=== PATIENT | female | born 1975 | race Asian ===

== ENCOUNTER 2018-06-08 13:21 | Day surgery (SDC) | payer OTHER, SELFPAY ==
[2018-06-08 14:42] LABS: #Eosinphils 0.1 thou/uL (0.0-0.7); #Lymphocytes 0.8 thou/uL (1.20-3.40); #Monocytes 0.6 thou/uL (0.11-0.59); #Neutrophils 6.4 thou/uL (1.40-6.50); %Eosinophils 0.7 % (0.0-10.0); %Lymphocytes 9.6 % (21.0-51.0); %Monocytes 7.2 % (0.0-10.0); %Neutrophils 82.5 % (42.0-75.0); Hemoglobin 13.4 g/dL (12.0-16.0); Mean Corpuscular HGB CONC 34.5 g/dL (32.0-36.0); Mean Corpuscular Volume 98.4 fL (78.0-98.0); Mean Platelet Volume 7.5 fL (7.4-10.4); Platelet Count 161 thou/uL (130-400); RBC Distribution Width 12.6 % (11.5-14.5); Red Blood Cell (RBC) Count 3.93 mill/uL (4.20-5.40); White Blood Cell (WBC) Count 7.8 thou/uL (4.8-10.8)
[2018-06-08] MEDS ORDERED: Acetaminophen 500 MG TAB PO PRN (15:26)
[2018-06-08] MEDS ORDERED: Ondansetron HCl/PF 4 MG/2 ML Vial IVP PRN (15:26)
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
== END 2018-06-08 19:20 | disposition home or self-care (01) ==
LOC: ERS 13:21 → L&D/OP 14:25 → L&D 14:25 → SDC 14:25 → L&D/OP 19:20
PROVIDERS: ATTEND Obstetrics & Gynecology
DX: O9A.213 Injury, poisoning and certain other consequences of external causes complicating pregnancy, third trimester (principal); Z3A.30 30 weeks gestation of pregnancy
CPT/HCPCS: 85025; 85460; 86900; 86901; 99281

== ENCOUNTER 2018-07-12 13:34 | Outpatient (CLI) | payer OTHER | END 2018-07-12 13:35 | disposition home or self-care (01) | LOC: LAB 13:34 | PROVIDERS: ATTEND Family Medicine | DX: Z34.00 Encounter for supervision of normal first pregnancy, unspecified trimester (principal) | CPT/HCPCS: 87081 ==

== ENCOUNTER 2018-07-25 03:39 | Inpatient (IN) | payer MEDICAID, OTHER, SELFPAY ==
[2018-07-25] MEDS ORDERED: Promethazine HCl 25 MG/ML VIAL IM PRN ×2 (04:05→19:39)
[2018-07-25] MEDS ORDERED: Ondansetron HCl/PF 4 MG/2 ML Vial IVP PRN ×2 (04:05→19:39)
[2018-07-25] MEDS ORDERED: Ibuprofen 800 MG TAB PO PRN (04:05)
[2018-07-25] MEDS ORDERED: NS / Oxytocin 40 units/1000ml 1,000 ML IV PRN (04:05)
[2018-07-25] MEDS ORDERED: Lidocaine 1% (PF) 30 ML VIAL SC PRN (04:05)
--- NOTE | 2018-07-25 04:11 | PDOC.FPROB ---
FMR OB H&P: HPI - History of Present Illness Chief Complaint: Leaking of fluid Indentification: 43 year old History of Present Illness: 43 year old at 37.2 wks with ENEDINA of 08/13/2018 that presents with SROM at 2: 30 AM on 07/25/2018. Fluid was pink-tinged. Patient endorses few irregular contractions. She endorses good movement. 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: None - Surgical History Sx History: Cyst removal from thyroid - Social History Social History: Denies alcohol, tobacco, or drug use - Family History Family History: Noncontributory [facility]MR OB H&P: Medications - Current Home Medications: Medication Instructions Recorded Confirmed Type Vits96/Iron Fum/Folic 1 cap PO DAILY 06/08/18 07/25/18 History [ Tablet] Allergies/Adverse Reactions: Allergies Allergy/AdvReac Type Severity Reaction Status Date / Time alcohol Allergy Verified 06/08/18 15:32 beer Allergy Uncoded 06/08/18 15:33 FMR OB H&P: ROS - Review of Systems General: denies: fever/chills, fatigue Eyes: denies: vision changes, double vision ENT: denies: nasal congestion, rhinorrhea, sore throat Cardiovascular: denies: chest pain, palpitation, edema Respiratory: denies: cough, congestion, shortness of breath Gastrointestinal: denies: abdominal pain, indigestion, bloating, cramping, nausea, vomiting, diarrhea Genitourinary (Female): reports: polyuria, vaginal pain, contractions. denies: incontinence, dysuria, vaginal discharge, vaginal bleeding Musculoskeletal: denies: pain Hematologic/Lymphatic: denies: prolonged or excessive bleeding Psychological: denies: depression, anxiety FMR OB H&P: Vital Signs - Maternal Vital signs: BP 135/85 Pulse 62 - Heart Tones Baseline: 140 Variability: moderate Acceleration: present Deceleration: absent Category: category 1 [place] contractions every: q4-7 minutes [facility]MR OB H&P: Physical Exam - Physical Exam General: NAD, awake, alert and oriented HEENT: MMM, grossly normal vision, grossly normal hearing Neck: supple Heart: pulses present, no edema General: no respiratory distress Abdomen: soft, gravid, non-tender Musculoskeletal: pulses present Neurological: no tremor, no focal deficit Skin: no rash, capillary refill <2 seconds Lymphatic: no unusual bruising or bleeding Psychiatric: intact recent and remote memory, good judgement and insight, normal mood and affect - Pelvic Exam Vulva: no masses, no lesions Deviation from normal: [place] tinged fluid SVE: /-3 by nurse [facility]MR OB H&P: A/P - Problem List (1) Intrauterine Current Visit: Yes Status: Acute Code(s): Z34.90 - ENCNTR FOR SUPRVSN OF NORMAL , UNSP, UNSP TRIMESTER Assessment and Plan: 43 year old at 39 weeks 1. PROM - SROM at 2:30 AM, pink tinged fluid - NST reactive - Contractions q4-7 minutes - Initial cervical check /-1 - Admit to L&D for expectant management; labor augmentation as needed - GBS negative - Will notify Dr. Grover 2. TIUP - See plan as above 3. Rubella non-immune - Based on status in [facility] - Immunization PP Disposition: Stable. Admit to L&D for expectant management. Discussion: Date/Time: 07/25/18 [id number] This H&P was discussed with Dr. grover and Dr. Fry who agree with the above documentation and plan. Admission for Dr Grover. Plan reviewed and noted. Signature: Ct Sahu, PGY-2
[2018-07-25 04:16] VITALS: BMI 26.7
[2018-07-25 05:09] LABS: Hemoglobin 13.9 g/dL (12.0-16.0); Mean Corpuscular HGB CONC 34.5 g/dL (32.0-36.0); Mean Corpuscular Hemoglobin 33.6 pg (27.0-31.0); Mean Corpuscular Volume 97.5 fL (78.0-98.0); Mean Platelet Volume 8.6 fL (7.4-10.4); Platelet Count 143 thou/uL (130-400); RBC Distribution Width 12.8 % (11.5-14.5); Red Blood Cell (RBC) Count 4.14 mill/uL (4.20-5.40); White Blood Cell (WBC) Count 5.6 thou/uL (4.8-10.8)
[2018-07-25 05:45] LABS: HBSAg Index 0.21 S/CO (0-0.99); Hep B Surf Ag Non-Reactive S/CO (NonReactive); Syphilis Antibody Nonreactive (Nonreactive); Syphilis Antibody Index 0.07 S/CO (<1.00 Non-Reactive)
[2018-07-25] MEDS: Lactated Ringer's 1,000 ML IV SCH ×3 (11:48→21:46)
[2018-07-25] MEDS ORDERED: NS w/ Oxytocin 10 units 500 ML ONE (13:52)
[2018-07-25] MEDS ORDERED: NS w/ Oxytocin 10 units 500 ML IV SCH (14:00)
[2018-07-25] MEDS ORDERED: Butorphanol Tartrate 1 MG/ML VIAL SLOW IVP PRN (18:54)
[2018-07-25] MEDS ORDERED: Fentanyl 4 mcg/Bup 0.1% Cadd 100 ML ONE (19:07)
[2018-07-25] MEDS ORDERED: Eucerin (Mineral Oil/Petrolatum,White) 30 gm Jar TOP PRN (19:39)
[2018-07-25] MEDS ORDERED: Acetaminophen 325 MG TAB PO PRN (19:39)
[2018-07-25] MEDS ORDERED: diphenhydrAMINE 50 MG/ML VIAL IVP PRN (19:39)
[2018-07-25] MEDS ORDERED: Lactated Ringer's 500 ML IV PRN (19:39)
[2018-07-25] MEDS ORDERED: Naloxone HCl 0.4 mg/ml Vial IVP PRN ×2 (19:39)
[2018-07-25] MEDS ORDERED: ePHEDrine/0.9% NaCl/PF SYRINGE 50 mg/10 ml SLOW IVP PRN (19:39)
[2018-07-25] MEDS ORDERED: Communication Order-Pharmacy FS SCH (19:45)
[2018-07-25] MEDS ORDERED: Fentanyl 4 mcg/Bupivacaine 0.1% Cassette 100 ML EPIDURAL SCH (19:45)
[2018-07-26] MEDS ORDERED: Lidocaine 1% (PF) 30 ML VIAL ONE (00:42)
[2018-07-26] MEDS ORDERED: NS / Oxytocin 40 units/1000ml 1,000 ML ONE (00:42)
[2018-07-26] MEDS ORDERED: Fentanyl 4 mcg/Bup 0.1% Cadd 100 ML ONE (00:54)
[2018-07-26] MEDS ORDERED: Misoprostol 200 MCG TAB ONE (04:42)
[2018-07-26] MEDS ORDERED: Methylergonovine 0.2 MG/ML VIAL ONE (04:43)
[2018-07-26] MEDS ORDERED: Carboprost 250 MCG/ML AMP ONE (04:43)
[2018-07-26] MEDS ORDERED: NS / Oxytocin 40 units/1000ml 1,000 ML IV SCH (07:32)
[2018-07-26] MEDS ORDERED: HYDROcodone/Acetaminophen 5/325 mg Tablet PO PRN (07:32)
[2018-07-26] MEDS ORDERED: Ibuprofen 800 MG TAB PO SCH (07:32)
[2018-07-26] MEDS ORDERED: Milk Of Magnesia 30 ML UDCUP PO PRN (07:32)
[2018-07-26] MEDS ORDERED: Benzocaine/Menthol 20-0.5% 60 ML CAN TOP PRN (07:32)
[2018-07-26] MEDS ORDERED: Bisacodyl 10 MG SUPP PR PRN (07:32)
[2018-07-26] MEDS ORDERED: Adacel (T-DAP) 0.5 ML VIAL IM ONE (07:32)
[2018-07-26] MEDS ORDERED: Lanolin Ointment 7 GM TUBE TOP PRN (07:32)
[2018-07-26] MEDS ORDERED: Measles/Mumps/Rubella 10 MCG/0.5 ML VIAL SC ONE (07:32)
[2018-07-26] MEDS: Docusate Calcium (SURFAK) 240 MG CAP PO SCH ×2 (11:08→20:36)
[2018-07-26] MEDS: Ibuprofen 800 MG TAB PO SCH ×2 (11:09→20:36)
[2018-07-26] MEDS: Ferrous Sulfate 325 MG TAB PO SCH ×2 (11:09→19:07)
[2018-07-27] MEDS: Ibuprofen 800 MG TAB PO SCH ×4 (01:05→22:30)
[2018-07-27] MEDS: Lactated Ringer's 1,000 ML IV SCH (01:06)
[2018-07-27 06:27] LABS: Hemoglobin 10.7 g/dL (12.0-16.0); Mean Corpuscular HGB CONC 33.8 g/dL (32.0-36.0); Mean Corpuscular Hemoglobin 33.6 pg (27.0-31.0); Mean Corpuscular Volume 99.3 fL (78.0-98.0); Mean Platelet Volume 8.5 fL (7.4-10.4); Platelet Count 114 thou/uL (130-400); RBC Distribution Width 13.1 % (11.5-14.5); White Blood Cell (WBC) Count 11.5 thou/uL (4.8-10.8)
[2018-07-27] MEDS: Ferrous Sulfate 325 MG TAB PO SCH (07:34)
[2018-07-27] MEDS ORDERED: Lidocaine 2% MPF 10 ML AMP (For Epidural Use) ONE (07:59)
[2018-07-27] MEDS ORDERED: Bupivacaine 0.25% HCL 30 ML VIAL ONE (07:59)
[2018-07-27] MEDS: Docusate Calcium (SURFAK) 240 MG CAP PO SCH ×2 (08:26→22:31)
--- NOTE | 2018-07-27 15:21 | PDOC.PP ---
Post Progress Note Post Day #: 1 Subjective: Doing well, tired but no pain. Bleeding OK. going poorly. PO intake tolerated: yes Flatus: yes Ambulation: yes Vital Signs (12 hours) Temp Pulse Resp BP Pulse Ox 07/27/18 11:50 98.0 F 62 20 111/60 07/27/18 09:07 98 07/27/18 07:52 98.2 F 66 20 107/56 L 98 07/27/18 05:00 97.8 F 67 18 107/58 L 98 Weight Weight 151 lb - Physical Examination General: NAD Cardiovascular: no m/r/g, RRR Respiratory: clear to auscultation bilaterally, non-labored breathing Abdominal: + bowel sounds, lochia, no distention, appropriately TTP Result Diagrams: 07/27/18 05:43 Additional Labs: Post Labs Blood Type O POSITIVE 07/25/18 05:00 Hep Bs Antigen Non-Reactive S/CO (NonReactive) 07/25/18 05:00 (1) Vaginal delivery Code(s): O80 - ENCOUNTER FOR FULL-TERM UNCOMPLICATED DELIVERY Status: Acute - Assessment/Plan Routine PP care. Shower, ambulate. Home tomorrow.
[2018-07-27 23:28] VITALS: TEMP 98.4
[2018-07-28 07:54] VITALS: BP 120/66
--- NOTE | 2018-07-28 10:27 | PDOC.PP ---
Post Progress Note Post Day #: 2 Subjective: Doing well, no c/o. No longer . Bottle feeding primarily now. PO intake tolerated: yes Flatus: yes Ambulation: yes Vital Signs (12 hours) Temp Pulse Resp BP Pulse Ox 07/28/18 07:53 98.4 F 65 20 120/66 99 Weight Weight 151 lb - Physical Examination General: NAD Cardiovascular: no m/r/g, RRR Respiratory: clear to auscultation bilaterally, non-labored breathing Abdominal: + bowel sounds, lochia, no distention, appropriately TTP Result Diagrams: 07/27/18 05:43 Additional Labs: Post Labs Blood Type O POSITIVE 07/25/18 05:00 Hep Bs Antigen Non-Reactive S/CO (NonReactive) 07/25/18 05:00 (1) Vaginal delivery Code(s): O80 - ENCOUNTER FOR FULL-TERM UNCOMPLICATED DELIVERY Status: Acute - Assessment/Plan Routine PP care F/U in 6 weeks D/C home
== END 2018-07-28 14:30 | disposition home or self-care (01) | DRG 806 ==
LOC: L&D/OP 03:39 → L&D 04:23 → 3SE 07-26 07:44
PROVIDERS: ADMIT Family Medicine; ATTEND Family Medicine
PROC: 10E0XZZ Delivery of Products of Conception, External Approach (ICD-10-PCS; principal; 2018-07-25)
PROC: 0KQM0ZZ Repair Perineum Muscle, Open Approach (ICD-10-PCS; 2018-07-25)
DX: O70.1 Second degree perineal laceration during delivery (principal); O63.9 Long labor, unspecified; Z37.0 Single live birth; Z91.018 Allergy to other foods; Z3A.37 37 weeks gestation of pregnancy; O09.813 Supervision of pregnancy resulting from assisted reproductive technology, third trimester
CPT/HCPCS: 36415; 51702; 85027; 86780; 86850; 86900; 86901; 87340; 99285; J2001; J2210; J3490; S0020